=== PATIENT | female | born 1950 | race Two or more races ===

== ENCOUNTER 2019-07-25 09:25 | Day surgery (SDC) | payer MEDICARE ==
[2019-07-20 11:43] LABS: Basophils # (auto) 0 uL; Basophils % (auto) 0.5 % (0.0-2.0); Eosinophils # (auto) 0.2 uL; Eosinophils % (auto) 3.7 % (0.0-7.0); Hematocrit 40.2 % (36.0-46.0); Hemoglobin 13.6 g/dL (12.2-16.2); Lymphocytes # (auto) 1.1 uL; Lymphocytes % (auto) 21.5 % (10.0-50.0); Mean Corpuscular Hemoglobin 31.7 pg (28.0-32.0); Mean Corpuscular Hgb Conc. 33.7 g/dL (32.0-36.0); Mean Corpuscular Volume 93.9 fL (80.0-100.0); Monocytes # (auto) 0.4 uL; Monocytes % (auto) 8.4 % (0.0-12.0); Neutrophils # (auto) 3.3 uL; Neutrophils % (auto) 65.9 % (37.0-80.0); Nucleated Red Blood Cells % 0.1 %; Platelet Count (auto) 149 10^3/uL (140-450); Red Blood Cells 4.28 10^6/uL (4.0-5.20); Red Cell Distribution Width 13.2 % (11.8-14.3)
[2019-07-20 11:59] LABS: Albumin 4.3 g/dL (3.4-5.0); BUN/Creatinine Ratio 17.7; Potassium 3.9 mmol/L (3.5-5.1)
[2019-07-20 12:01] LABS: Bilirubin, Total 0.6 mg/dL (0.2-1.0); Total Protein 7.9 g/dL (6.4-8.2)
[2019-07-20 12:06] LABS: Urine Bacteria FEW /hpf (None Seen); Urine Blood Negative /uL (Negative); Urine Mucus FEW (None Seen); Urine Specific Gravity 1.021 (1.001-1.035); Urine WBC 1 /hpf (0 - 5)
[2019-07-20 12:19] LABS: INR 0.96 (0.9-1.15); Partial Thromboplastin Time 27.3 sec (23.64-32.05)
[~2019-07-25] VITALS: Ht 160 cm; Wt 58.1 kg
[~2019-07-25 09:25] MED LIST: LISI-285 PO; METO-159 PO
[2019-07-25] MEDS ORDERED: ceFAZolin 1GM/50ML 50 ML IV ONE (10:58)
[2019-07-25] MEDS ORDERED: ROPIVACAINE 0.5% (5MG/ML) 20ML AMPULE IJ ONE (12:56)
[2019-07-25] MEDS ORDERED: fentaNYL CITRATE 100 MCG/2 ML VL ONE (13:15)
[2019-07-25] MEDS ORDERED: MIDAZOLAM HCL 1MG/1ML-2 ML VIAL ONE (13:15)
[2019-07-25] MEDS ORDERED: PROPOFOL 10 MG/ML 20 ML IV ONE (13:20)
[2019-07-25] MEDS ORDERED: methylPREDNISolone ACETATE 80 MG/ML VL ONE (13:42)
[2019-07-25] MEDS ORDERED: fentaNYL CITRATE 100 MCG/2 ML VL IV ONE (13:44)
[2019-07-25] MEDS ORDERED: fentaNYL CITRATE 100 MCG/2 ML VL IV PRN (13:45)
[2019-07-25] MEDS ORDERED: ePHEDrine SULFATE 50 MG/ML AMP IV PRN (13:45)
[2019-07-25] MEDS ORDERED: hydrALAZINE HCL 20 MG/ML VL IV PRN (13:45)
[2019-07-25 14:36] VITALS: BP 143/68
== END 2019-07-25 15:06 | disposition home or self-care (01) ==
LOC: SUR 09:25
PROVIDERS: ATTEND Podiatrist Foot & Ankle Surgery
DX: Q66.52 Congenital pes planus, left foot (principal); M72.2 Plantar fascial fibromatosis; I10 Essential (primary) hypertension; Z95.0 Presence of cardiac pacemaker; Z85.3 Personal history of malignant neoplasm of breast; Z79.899 Other long term (current) drug therapy; Z92.21 Personal history of antineoplastic chemotherapy; Z92.3 Personal history of irradiation
CPT/HCPCS: 29893; 29999; 36415; 80053; 81001; 85025; 85610; 85730; 93005; J0690; J1040; J2250; J2704; J2795; J3010